=== PATIENT | male | born 1950 | race Caucasian/White ===

== ENCOUNTER 2022-02-09 14:43 | Outpatient (REF) | payer OTHER, SELFPAY ==
--- NOTE | ~2022-02-09 | MR_ITS ---
EXAMINATION: MR BRAIN WITHOUT AND WITH CONTRAST CLINICAL INFORMATION: Acoustic neuroma COMPARISON: None TECHNIQUE: Multiplanar multisequence MR imaging of the brain was obtained without and following the administration of 8 mL Gadavist intravenous contrast. FINDINGS: 6 mm enhancing lesion centered in the mid left internal auditory canal compatible with an acoustic schwannoma. There is no acute infarct on diffusion-weighted imaging. There is no intracranial hemorrhage on iron-sensitive imaging. No extra-axial collection or mass effect/herniation. There are several scattered foci of nonspecific supratentorial white matter T2/FLAIR signal abnormality. No hydrocephalus. Mild generalized cerebral volume loss with commensurate sulcal and ventricular prominence. No abnormal parenchymal enhancement. The major flow voids at the skull base are preserved. The midline structures are normal. The cerebellar tonsils are normally positioned. The craniocervical junction is normal. Marrow signal is within normal limits. The visualized soft tissues are without significant abnormality. No signal abnormality within the paranasal sinuses or within the mastoid air cells. MR/MR head/brain wo/w con IMPRESSION: 6 mm intracanalicular left acoustic schwannoma.
--- NOTE | ~2022-02-09 | XR_ITS ---
EXAMINATION: PRE-MRI SCREENING. CLINICAL INFORMATION: Left femur foreign body. History of axial injury. COMPARISON: None TECHNIQUE: 2 views. FINDINGS: There is a small soft tissue radiopaque metallic foreign body along the medial cortex of the mid femur. No additional radiopaque foreign body seen. No gross bony abnormality. XR/XR pre mri screening IMPRESSION: 5 mm radiopaque metallic foreign body in soft tissues medial to the medial cortex in mid femur
== END 2022-02-09 14:44 | disposition home or self-care (01) ==
LOC: HO.MRI 14:43
PROVIDERS: PCP Family Medicine; Visit Provider Otolaryngology
DX: D33.3 Benign neoplasm of cranial nerves (principal)
CPT/HCPCS: 70553; A9585